=== PATIENT | male | born 1990 | race Caucasian/White ===

== ENCOUNTER 2016-02-23 21:56 | Emergency (ER) | payer OTHER ==
[~2016-02-23] VITALS: Ht 185.4 cm; Wt 86.0 kg
[~2016-02-23 21:56] MED LIST: PRED10 PO
[2016-02-23 22:03] VITALS: BP 136/92; PULSE 64; RESP 14; TEMP 98; O2SAT 97
== END 2016-02-24 02:12 | disposition left against medical advice (07) ==
LOC: NED 21:56
DX: R13.10 Dysphagia, unspecified (principal); Z53.21 Procedure and treatment not carried out due to patient leaving prior to being seen by health care provider
CPT/HCPCS: 99281